=== PATIENT | male | born 1975 | race Caucasian/White ===

== ENCOUNTER 2017-07-28 12:46 | Emergency (ER) | payer OTHER ==
[2017-07-28 13:42] VITALS: BP 126/72; PULSE 76; RESP 18; TEMP 98.2; O2SAT 98
--- NOTE | 2017-07-28 14:36 | ED PDOC ---
HPI: CCC, URI, Sore Throat Time Seen by Provider: 07/28/17 14:28 Chief Complaint (Nursing): ENT Problem Chief Complaint (Provider): LEFT ear pain History Per: Patient History/Exam Limitations: no limitations Onset/Duration Of Symptoms: Days (2) Additional Complaint(s): Pt with 2 day h/o ear pain, fullness, some hearing loss. Has h/o of surgery to pinna due to accident but had no internal ear damage Taking ibuprofen with some relief No drops used. Recent mild sore throat, otherwise no cough/URI symptoms. No fever. PMD NOne Past Medical History Reviewed: Historical Data, Nursing Documentation, Vital Signs Vital Signs: Last Vital Signs Temp 98.2 F 07/28/17 13:40 Pulse 76 07/28/17 13:40 Resp 18 07/28/17 13:40 BP 126/72 07/28/17 13:40 Pulse Ox 98 07/28/17 13:40 - Medical History PMH: No Chronic Diseases - Family History Family History: States: Unknown Family Hx - Living Arrangements Living Arrangements: With Family - Social History Current smoker - smoking cessation education provided: No - Home Medications Home Medications: Ambulatory Orders Medication Instructions Recorded traMADol [Ultram] 50 mg PO Q6H PRN #15 tab 03/02/15 Amoxicillin/Clavulanate [Augmentin 1 tab PO BID #14 tab 07/28/17 875 MG-125 MG] Carbamide Peroxide [Debrox Ear 5 drop BID #1 bottle 07/28/17 Drops] - Allergies Allergies/Adverse Reactions: Allergies Allergy/AdvReac Type Severity Reaction Status Date / Time No Known Allergies Allergy Verified 03/02/15 20:41 Review of Systems Constitutional: Negative for: Fever, Chills ENT: Positive for: Ear Pain, Throat Pain. Negative for: Ear Discharge, Nose Discharge, Nose Congestion, Mouth Pain, Throat Swelling Respiratory: Negative for: Cough Musculoskeletal: Negative for: Neck Pain Skin: Negative for: Rash, Lesions Neurological: Positive for: Headache, Dizziness. Negative for: Weakness, Numbness Physical Exam - Reviewed Nursing Documentation Reviewed: Yes Vital Signs Reviewed: Yes - Physical Exam Appears: Positive for: Non-toxic, No Acute Distress Head Exam: Positive for: ATRAUMATIC, NORMOCEPHALIC Skin: Positive for: Warm, Dry Eye Exam: Positive for: EOMI, PERRL ENT: Positive for: Other (RIGHT TM normal, LEFT TM: cerumen filling entire canal , unable to visualize TM. LEFT pinna: large part of pinna missing). Negative for: Nasal Congestion, Pharyngeal Erythema, Tonsillar Exudate, Tonsillar Swelling Neck: Positive for: Painless ROM, Supple Lymphatic: Negative for: Adenopathy (cervical) Neurologic/Psych: Positive for: Alert. Negative for: Motor/Sensory Deficits - ECG O2 Sat by Pulse Oximetry: 98 Disposition - Clinical Impression Clinical Impression: Left ear pain, Cerumen impaction Counseled Patient/Family Regarding: Studies Performed, Diagnosis, Need For Followup, Rx Given - Disposition Referrals: [facility] [place] [Outside] - 08/04/17 ([facility] Disposition: Routine/Home Disposition Time: 14:35 Condition: GOOD Prescriptions: Amoxicillin/Clavulanate [Augmentin 875 MG-125 MG] 1 tab PO BID #14 tab Carbamide Peroxide [Debrox Ear Drops] 5 drop BID #1 bottle Instructions: Earache (ED), Cerumen Impaction (ED) Forms: [facility] ED School/Work Excuse Print Language: YEMENI
== END 2017-07-28 14:52 | disposition home or self-care (01) ==
LOC: H.ER 12:46
DX: H61.22 Impacted cerumen, left ear (principal)

== ENCOUNTER 2018-04-05 10:25 | Emergency (ER) | payer OTHER ==
[2018-04-05 10:28] VITALS: BMI 31.6
[2018-04-05 10:29] VITALS: BP 136/82; PULSE 68; RESP 17; TEMP 98.5; O2SAT 97
--- NOTE | 2018-04-05 22:53 | ED PDOC ---
HPI: Headache Time Seen by Provider: 04/05/18 12:08 Chief Complaint (Nursing): Headache History Per: Patient Additional Complaint(s): 42 y/o male no PMH presents to ED c/o headache x 3 months. Pain is located over posterior head and occurs 5min at a time 2-3 times a week. Pain described as a "tight" sensation. Associated right sided paraspinal cervical pain. Pt gets relief by putting cold towel over his head. Pt works in construction and drinks very little water. Not currently c/o pain. Has not taken any medication for pain. Denies fevers, chills, vision changes, sore throat, ear pain, nasal congestion, back pain, difficulty walking, numbness, paresthesias, abdominal pain, N/V, SOB, chest pain, palpitations, syncope. Past Medical History Reviewed: Historical Data, Nursing Documentation, Vital Signs Vital Signs: Last Vital Signs Temp 98.5 F 04/05/18 10:29 Pulse 68 04/05/18 10:29 Resp 17 04/05/18 10:29 BP 136/82 04/05/18 10:29 Pulse Ox 97 04/05/18 10:29 - Family History Family History: States: Unknown Family Hx - Immunization History Hx Tetanus Toxoid Vaccination: No Hx Influenza Vaccination: No Hx Pneumococcal Vaccination: No - Home Medications Home Medications: Ambulatory Orders Medication Instructions Recorded traMADol [Ultram] 50 mg PO Q6H PRN #15 tab 03/02/15 Amoxicillin/Clavulanate [Augmentin 1 tab PO BID #14 tab 07/28/17 875 MG-125 MG] Carbamide Peroxide [Debrox Ear 5 drop BID #1 bottle 07/28/17 Drops] Cyclobenzaprine [Flexeril] 5 mg PO Q8H PRN 7 Days #21 tab 04/05/18 Ibuprofen [Motrin Tab] 600 mg PO Q6H PRN #30 tab 04/05/18 - Allergies Allergies/Adverse Reactions: Allergies Allergy/AdvReac Type Severity Reaction Status Date / Time No Known Allergies Allergy Verified 03/02/15 20:41 Review of Systems ROS Statement: Except As Marked, All Systems Reviewed And Found Negative Constitutional: Negative for: Fever, Chills Eyes: Negative for: Pain, Vision Change, Conjunctivae Inflammation ENT: Negative for: Ear Pain, Nose Pain, Nose Congestion, Mouth Pain, Throat Pain, Throat Swelling Cardiovascular: Negative for: Chest Pain, Palpitations Respiratory: Negative for: Cough, Shortness of Breath Gastrointestinal: Negative for: Nausea, Vomiting, Abdominal Pain Genitourinary Male: Negative for: Dysuria, Frequency, Incontinence Musculoskeletal: Positive for: Neck Pain (right paraspinal). Negative for: Shoulder Pain, Arm Pain, Back Pain Skin: Negative for: Rash Neurological: Positive for: Headache. Negative for: Weakness, Numbness, Dizziness Physical Exam - Reviewed Nursing Documentation Reviewed: Yes Vital Signs Reviewed: Yes - Physical Exam Appears: Positive for: Well, Non-toxic, No Acute Distress Head Exam: Positive for: ATRAUMATIC, NORMAL INSPECTION, NORMOCEPHALIC Skin: Positive for: Normal Color, Warm, DRY Eye Exam: Positive for: EOMI, Normal appearance, PERRL ENT: Positive for: Normal ENT Inspection, Pharynx Is (normal), TM Is/Are (normal). Negative for: Sinus Pain/Drainage, Nasal Congestion, Pharyngeal Erythema, Tonsillar Exudate, Tonsillar Swelling Neck: Positive for: Painless ROM, Supple. Negative for: Normal (tenderness over right cervical paraspinal muscles and over ight trapezius muscle) Pulses-Radial (L): 2+ Pulses-Radial (R): 2+ Gastrointestinal/Abdominal: Positive for: Normal Exam, Soft Back: Positive for: Normal Inspection, Muscle Spasm (right cervical paraspinal muscles). Negative for: Vertebral Tenderness, Decreased ROM Extremity: Positive for: Normal ROM. Negative for: Tenderness Lymphatic: Positive for: Normal Exam. Negative for: Adenopathy Neurologic/Psych: Positive for: Alert, crop ranch hand II-XII (intact), Oriented, Cerebellar Tests (normal). Negative for: Motor/Sensory Deficits - ECG O2 Sat by Pulse Oximetry: 97 Medical Decision Making Medical Decision Makin42 y/o male no PMH presents to ED c/o headache x 3 months. Pain is located over posterior head and occurs 5min at a time 2-3 times a week. Pain described as a "tight" sensation. Associated right sided paraspinal cervical pain. Pt gets relief by putting cold towel over his head. Pt works in construction and drinks very little water. Not currently c/o pain. Has not taken any medication for pain. Denies fevers, chills, vision changes, sore throat, ear pain, nasal congestion, back pain, difficulty walking, numbness, paresthesias, abdominal pain, N/V, SOB, chest pain, palpitations, syncope. Normal HEENT, cardiac, pulmonary, abdominal, and neuro exams. Back: mild tenderness and muscle spasm of right cervical paraspinal muscles. Impression: tension headache Plan: Drink 6-8 bottles of water daily take flexeril as directed ibuprofen for pain q6h followup with primary or clinic within 2 days return if sx worsen plan discussed with pt who agrees and understands. pt comfortable with discharge home Disposition - Clinical Impression Clinical Impression: Tension headache - Disposition Referrals: [facility] [Outside] Johnathan Casillas MD [Medical Doctor] - Disposition: Routine/Home Disposition Time: 12:00 Condition: STABLE Additional Instructions: [place] Flexeril cada 8 horas niels sea necesario para el espasmo muscular [place] ibuprofen para el dolor cada 6 horas con el alimento segn lo necesitado Aumente la ingesta de agua a 6-8 botellas al da Seguimiento con el mdico de cabecera dentro de 2 greene Volver a Ed si los sntomas persisten o empeoran Prescriptions: Cyclobenzaprine [Flexeril] 5 mg PO Q8H PRN 7 Days #21 tab PRN Reason: spasm Ibuprofen [Motrin Tab] 600 mg PO Q6H PRN #30 tab PRN Reason: Pain, Mild (1-3) Instructions: Tension Headache (DC) Forms: [employer] (Filipino), [facility] ED School/Work Excuse Print Language: IRANIAN
== END 2018-04-05 12:10 | disposition home or self-care (01) ==
LOC: H.ER 10:25
DX: G44.209 Tension-type headache, unspecified, not intractable (principal)

== ENCOUNTER 2018-08-21 18:16 | Emergency (ER) | payer OTHER ==
[2018-08-21 18:17] VITALS: BMI 31.6
[2018-08-21] MEDS ORDERED: Sodium Chloride 0.9% 1,000 ML IV STA (18:47)
--- NOTE | 2018-08-21 18:52 | ED PDOC ---
HPI: Influenza Time Seen by Provider: 08/21/18 18:40 Chief Complaint: Cough, Cold, Congestion Chief Complaint (Provider): flu-like symptoms History Per: Patient Exam Limitations: no limitations Onset/Duration Of Symptoms: Days (1x month) Symptoms include: sore throat, cough, nasal congestion Sick Contacts (Context): Family Member(s) (kids) Additional complaint(s):: 43 year old male with no pertinent past medical history presents to the ED for an evaluation of a cough, sore throat, and nasal congestion ongoing for 1x month with no resolution. Patient states that he does have ill-contacts- his kids. 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 Patient further reports seeing a small amount of blood streaks in his sputum and reports having night sweats. Patient denies having recent weight loss. PMD: None provided. Past Medical History Reviewed: Historical Data, Nursing Documentation, Vital Signs Vital Signs: Last Vital Signs Temp 98.8 F 08/21/18 18:35 Pulse 78 08/21/18 18:35 Resp 18 08/21/18 18:35 BP 166/94 H 08/21/18 18:35 Pulse Ox 99 08/21/18 18:35 JUDY Report Viewed: Yes - Medical History PMH: No Chronic Diseases - Surgical History Surgical History: No Surg Hx - Family History Family History: States: No Known Family Hx - Social History Current smoker - smoking cessation education provided: No Alcohol: None Drugs: Denies - Immunization History Hx Tetanus Toxoid Vaccination: No Hx Influenza Vaccination: No Hx Pneumococcal Vaccination: No - Home Medications Home Medications: Ambulatory Orders Medication Instructions Recorded traMADol [Ultram] 50 mg PO Q6H PRN #15 tab 03/02/15 Amoxicillin/Clavulanate [Augmentin 1 tab PO BID #14 tab 07/28/17 875 MG-125 MG] Carbamide Peroxide [Debrox Ear 5 drop BID #1 bottle 07/28/17 Drops] Cyclobenzaprine [Flexeril] 5 mg PO Q8H PRN 7 Days #21 tab 04/05/18 Ibuprofen [Motrin Tab] 600 mg PO Q6H PRN #30 tab 04/05/18 Azithromycin [Zithromax] 250 mg PO DAILY #6 tab 08/21/18 Ibuprofen [Motrin] 600 mg PO Q8 PRN #21 tab 08/21/18 - Allergies Allergies/Adverse Reactions: Allergies Allergy/AdvReac Type Severity Reaction Status Date / Time No Known Allergies Allergy Verified 08/21/18 18:35 Review of Systems ROS Statement: Except As Marked, All Systems Reviewed And Found Negative Constitutional: Positive for: Sweats (night sweats). Negative for: Weight loss ENT: Positive for: Nose Congestion, Throat Pain Respiratory: Positive for: Cough, Sputum (with small amounts of blood streaking) Physical Exam - Reviewed Nursing Documentation Reviewed: Yes Vital Signs Reviewed: Yes - Physical Exam Appears: Positive for: Well, Non-toxic, No Acute Distress Head Exam: Positive for: ATRAUMATIC, NORMOCEPHALIC Skin: Positive for: Normal Color, Warm, Dry Eye Exam: Positive for: Normal appearance ENT: Positive for: Normal ENT Inspection Cardiovascular/Chest: Positive for: Regular Rate, Rhythm Respiratory: Positive for: Normal Breath Sounds Neurologic/Psych: Positive for: Alert, Oriented (3x) Medical Decision Making Medical Decision Makin:40 Initial impression: 43 year old male with a cough, sore throat, and congestion. Initial plan: * XRay chest portable * VBG * CMP * CBC with differential * IV NS 1,000 ml IV 500 mls/hr * blood culture * influenza AB * rapid HIV * rapid strep * reevaluation 20:55 XRay chest read and reviewed by radiologist FINDINGS: LUNGS: The lungs appear within normal limits. PLEURAL SPACES: No pleural effusion or pneumothorax. MEDIASTINUM: Cardiac size and mediastinal contours within normal limits. BONES: No aggressive appearing osseous lesion seen. IMPRESSION: No acute cardiopulmonary pathology is evident. No evidence of TB. Scribe Attestation: Documented Ashli Napier, acting as a scribe for Setu B Ramirez PA-C. Provider Scribe Attestation: All medical record entries made by the Scribe were at my direction and personally dictated by me. I have reviewed the chart and agree that the record accurately reflects my personal performance of the history, physical exam, medical decision making, and the department course for this patient. I have also personally directed, reviewed, and agree with the discharge instructions and disposition. - Laboratory Results Result Diagrams: 08/21/18 19:21 08/21/18 19:21 - ECG O2 Sat by Pulse Oximetry: 99 (RA) Pulse Ox Interpretation: Normal - Radiology X-Ray: Viewed By Me, Read By Radiologist (see MDM note) X-Ray Interpretation: No Acute Disease - Progress ED Course And Treament: Address: [address] [place] [address] Hours: Closed ? Opens 8:30AM Mon Disposition - Clinical Impression Clinical Impression: Cough - Patient ED Disposition Is Patient to be Admitted: No - Disposition Referrals: [facility] [Outside] Disposition: Routine/Home Disposition Time: 20:32 Condition: FAIR Additional Instructions: Address: [address] [place] [id number] Hours: Closed ? Opens 8:30AM Mon Prescriptions: Azithromycin [Zithromax] 250 mg PO DAILY #6 tab Ibuprofen [Motrin] 600 mg PO Q8 PRN #21 tab PRN Reason: Pain, Moderate (4-7) Instructions: Cough, Adult (DC) Forms: [facility] ED School/Work Excuse Print Language: [id number]
[2018-08-21 19:26] LABS: BASO # 0.1 K/uL (0.0-0.2); BASO % 0.9 % (0.0-2.0); EOS # 0.1 K/uL (0.0-0.7); EOS % 0.7 % (0.0-4.0); HEMOGLOBIN 14.1 g/dL (12.0-18.0); LYMPH % 25.9 % (20.0-40.0); MEAN CELL VOLUME 86.8 fl (80.0-94.0); MEAN CORPUSCULAR HEMOGLOBIN 29.2 pg (27.0-31.0); MEAN CORPUSCULAR HGB CONC 33.7 g/dL (33.0-37.0); MEAN PLATELET VOLUME 7.9 fl (7.2-11.7); MONO # 0.7 K/uL (0.0-0.8); MONO % 9.2 % (0.0-10.0); NEUT # 4.8 K/uL (1.8-7.0); NEUT % 63.3 % (50.0-75.0); RBC 4.82 Mil/uL (4.40-5.90); RED CELL DISTRIBUTION WIDTH 13.5 % (11.5-14.5); WHITE BLOOD COUNT 7.6 K/uL (4.8-10.8)
[2018-08-21 19:29] LABS: VENOUS BLOOD GAS PCO2 40 mmHg (40-60); VENOUS BLOOD GAS PO2 60 mm/Hg (30-55)
[2018-08-21 19:34] LABS: ALB/GLOB RATIO 1.2 (1.0-2.1); ALBUMIN 4.5 g/dL (3.5-5.0); ALT/SGPT 91 U/L (21-72); AST/SGOT 52 U/L (17-59); BLOOD UREA NITROGEN 15 mg/dl (9-20); CALCIUM 9.2 mg/dL (8.4-10.2); GFR NON-AFRICAN AMERICAN > 60
[2018-08-21 20:26] VITALS: RESP 16
[2018-08-21 21:25] VITALS: BP 142/86; PULSE 76; TEMP 98.2; O2SAT 98
--- NOTE | 2018-08-22 10:50 | RAD ---
Date of service: 08/21/2018 HISTORY: R/O TB COMPARISON: No prior. FINDINGS: Apical lordotic type technique performed in this exam. LUNGS: No active pulmonary disease. PLEURA: No significant pleural effusion identified, no pneumothorax apparent. CARDIOVASCULAR: No aortic atherosclerotic calcification present. Normal cardiac size. No pulmonary vascular congestion. OSSEOUS STRUCTURES: No significant abnormalities. VISUALIZED UPPER ABDOMEN: Normal. OTHER FINDINGS: None. IMPRESSION: No active disease.
== END 2018-08-21 21:26 | disposition home or self-care (01) ==
LOC: H.ER 18:16
DX: R05 Cough (principal)
CPT/HCPCS: 71045; 80053; 82803; 85025; 87040; 87070; 87390; 87430; 87804; 96360; 96361; 99284; J7030